=== PATIENT | male | born 1985 | race Caucasian/White ===

== ENCOUNTER 2018-06-06 21:17 | Emergency (ER) | payer BC, OTHER ==
[2018-06-06] MEDS ORDERED: Ondansetron ODT 4 MG TAB ONE (21:31)
[2018-06-06] MEDS ORDERED: Ibuprofen 800 MG TAB ONE (21:35)
[2018-06-06] MEDS ORDERED: Acetaminophen 500 MG TAB ONE (21:35)
[2018-06-06] MEDS ORDERED: diphenhydrAMINE 25 MG CAP ONE (21:35)
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
== END 2018-06-06 22:06 | disposition home or self-care (01) ==
LOC: SCSER 21:17
DX: S09.90XA Unspecified injury of head, initial encounter (principal); R11.0 Nausea; F17.220 Nicotine dependence, chewing tobacco, uncomplicated; W19.XXXA Unspecified fall, initial encounter
CPT/HCPCS: 70450; Q0162

== ENCOUNTER 2022-08-09 17:30 | Outpatient (CLI) | payer BC | END 2022-08-09 17:31 | LOC: SLEEPLAB 17:30 | PROVIDERS: ATTEND Family Medicine Sports Medicine | DX: G47.9 Sleep disorder, unspecified (principal) | CPT/HCPCS: 95800 ==